=== PATIENT | female | born 1975 | race American Indian/Alaskan Native ===

== ENCOUNTER 2018-09-26 21:05 | Emergency (ER) | payer OTHER ==
[2018-09-26 21:59] VITALS: BP 119/68
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
[2018-09-27] MEDS ORDERED: TORADOL IM ONE (00:03)
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
== END 2018-09-27 00:49 | disposition home or self-care (01) ==
LOC: ED 21:05
DX: S39.012A Strain of muscle, fascia and tendon of lower back, initial encounter (principal); S96.912A Strain of unspecified muscle and tendon at ankle and foot level, left foot, initial encounter; V49.49XA Driver injured in collision with other motor vehicles in traffic accident, initial encounter; Y93.89 Activity, other specified; Y92.89 Other specified places as the place of occurrence of the external cause; Y99.8 Other external cause status
CPT/HCPCS: 72100; 73620; 96372; 99283; J1885